=== PATIENT | male | born 1990 | race Hispanic/Latino ===

== ENCOUNTER 2017-05-09 10:49 | Emergency (ER) | payer SELFPAY ==
[2017-05-09] MEDS ORDERED: ACETAMINOPHEN 500 MG TAB ONE (11:30)
--- NOTE | 2017-05-09 13:13 | EDPHYS ---
Physician Documentation [facility] Name: Edgardo Gomez Age: 26 yrs Sex: Male : 1990 Arrival Date: 05/09/2017 Time: 10:53 Bed 12 Private MD: ED Physician Cameron Daigle HPI: 05/09 13:11 This 26 yrs old Male presents to ER via Ambulatory with complaints of Flu snw Symptoms. 13:11 cold s/s and fever, chills, diarrhea. Onset: The symptoms/episode began/occurred snw gradually, 4 day(s) ago, and became persistent. Severity of symptoms: At their worst the symptoms were moderate. It is unknown whether or not the patient has had similar symptoms in the past. The patient has not recently seen a physician. Historical: - Allergies: 11:08 No Known Allergies; ch - Home Meds: :08 None [Active]; ch - PMHx: 11:08 None; ch - PSHx: 11:08 None; ch - Immunization history:: Adult Immunizations up to date, Last tetanus immunization: not indicated for visit today. Flu vaccine is not up to date. - Social history:: Smoking status: Patient uses tobacco products, denies chronic smoking, but will smoke occasionally, Patient/guardian denies using alcohol, street drugs. ROS: 13:10 Eyes: Negative for injury, pain, redness, and discharge, ENT: Negative for injury, snw pain, and discharge, Neck: Negative for injury, pain, and swelling, Cardiovascular: Negative for chest pain, palpitations, and edema, Respiratory: Negative for shortness of breath, cough, wheezing, and pleuritic chest pain. 13:10 Back: Negative for injury and pain, : Negative for injury, bleeding, discharge, and swelling, MS/Extremity: Negative for injury and deformity, Skin: Negative for injury, rash, and discoloration, Neuro: Negative for headache, weakness, numbness, tingling, and seizure. 13:10 Constitutional: Positive for body aches, chills, fatigue, fever, malaise, poor PO intake. 13:10 Abdomen/GI: Positive for diarrhea, Negative for abdominal pain. Exam: 13:10 Constitutional: This is a well developed, well nourished patient who is awake, alert, snw and in no acute distress. Head/Face: Normocephalic, atraumatic. Eyes: Pupils equal round and reactive to light, extra-ocular motions intact. Lids and lashes normal. Conjunctiva and sclera are non-icteric and not injected. Cornea within normal limits. Periorbital areas with no swelling, redness, or edema. ENT: Nares patent. No nasal discharge, no septal abnormalities noted. Tympanic membranes are normal and external auditory canals are clear. Oropharynx with no redness, swelling, or masses, exudates, or evidence of obstruction, uvula midline. Mucous membranes moist. Neck: Trachea midline, no thyromegaly or masses palpated, and no cervical lymphadenopathy. Supple, full range of motion without nuchal rigidity, or vertebral point tenderness. No Meningismus. Chest/axilla: Normal chest wall appearance and motion. Nontender with no deformity. No lesions are appreciated. Cardiovascular: Regular rate and rhythm with a normal S1 and S2. No gallops, murmurs, or rubs. Normal PMI, no JVD. No pulse deficits. Respiratory: Lungs have equal breath sounds bilaterally, clear to auscultation and percussion. No rales, rhonchi or wheezes noted. No increased work of breathing, no retractions or nasal flaring. Abdomen/GI: Soft, non-tender, with normal bowel sounds. No distension or tympany. No guarding or rebound. No evidence of tenderness throughout. Back: No spinal tenderness. No costovertebral tenderness. Full range of motion. Skin: Warm, dry with normal turgor. Normal color with no rashes, no lesions, and no evidence of cellulitis. MS/ Extremity: Pulses equal, no cyanosis. Neurovascular intact. Full, normal range of motion. Neuro: Awake and alert, GCS 15, oriented to person, place, time, and situation. Cranial nerves II-XII grossly intact. Motor strength 5/5 in all extremities. Sensory grossly intact. Cerebellar exam normal. Normal gait. Vital Signs: 11:08 BP 118 / 85; Pulse 85; Resp 16; Temp 100.6(O); Pulse Ox 97% on R/A; Weight 108.86 kg; ch Height 5 ft. 7 in. (170.18 cm); Pain 0/10; 13:05 BP 119 / 81; Pulse 80; Resp 16; Temp 98.4(O); Pulse Ox 100% on R/A; Pain 0/10; kt1 11:08 Body Mass Index 37.59 (108.86 kg, 170.18 cm) MDM: 12:45 Patient medically screened. snw 13:14 Data reviewed: vital signs, nurses notes. Data interpreted: Pulse oximetry: on room air snw is 100 %. Interpretation: normal. Counseling: I had a detailed discussion with the patient and/or guardian regarding: the historical points, exam findings, and any diagnostic results supporting the discharge/admit diagnosis, the presence of at least one elevated blood pressure reading (>120/80) during this emergency department visit, lab results, the need for outpatient follow up, to return to the emergency department if symptoms worsen or persist or if there are any questions or concerns that arise at home. Special discussion: Based on the history and exam findings, there is no indication for further emergent testing or inpatient evaluation. I discussed with the patient/guardian the need to see the primary care provider for further evaluation of the symptoms. 05/09 11:09 Order name: Flu; Complete Time: 11:48 05/09 11:09 Order name: Strep; Complete Time: 11:48 05/09 11:36 Order name: Throat Culture EDMS Administered Medications: 11:30 Drug: Tylenol 1000 mg {Note: given by Pam Crawley RN.} Route: PO; kt1 13:20 Drug: TORadol 60 mg Route: IM; Site: right deltoid; kt1 Disposition: 14:10 Co-signature as Attending Physician, Cameron Daigle MD I agree with the assessment and kdr plan of care. Disposition: 05/09/17 13:13 Discharged to Home. Impression: Viral infection, unspecified. - Condition is Stable. - Discharge Instructions: Viral Infections, Rehydration, Adult. - Prescriptions for Diclofenac Sodium 75 mg Oral Tablet Sustained Release - take 1 tablet by ORAL route 2 times per day; 30 tablet. orphenadrine citrate 100 mg Oral Tablet Sustained Release - take 1 tablet by ORAL route 2 times per day As needed; 20 tablet. - Work release form, Medication Reconciliation Form, Thank You Letter, Antibiotic Education form. - Follow up: Private Physician; When: 2 - 3 days; Reason: Recheck today's complaints, Continuance of care, Re-evaluation by your physician. Follow up: Emergency Department; When: As needed; Reason: Worsening of condition. Signatures: Dispatcher [employer] Pam Mendez, RN RN Cameron Hernandez MD MD kdr Therrien, Shelly, HYDROELECTRIC PLANT STRUCTURAL ENGINEER-C HYDROELECTRIC PLANT STRUCTURAL ENGINEER-Csnw Amie Ortega, RN RN kt1
--- NOTE | 2017-05-09 13:13 | ER ---
Nurse's Notes [facility] Name: Edgardo Gomez Age: 26 yrs Sex: Male : 1990 Arrival Date: 05/09/2017 Time: 10:53 Bed 12 Private MD: Diagnosis: Viral infection, unspecified Presentation: 05/09 11:07 Presenting complaint: Patient states: cough, congestion, bodyache, chills, fever t max ch 102, diarrhea. started Monday night. Transition of care: patient was not received from another setting of care. Onset of symptoms was May 05, 2017. Care prior to arrival: None. 11:07 Method Of Arrival: Ambulatory 11:07 Acuity: ESTELITA 4 ch Triage Assessment: 11:08 General: Appears in no apparent distress. uncomfortable, Behavior is calm, cooperative, ch appropriate for age. Pain: Denies pain. Historical: - Allergies: 11:08 No Known Allergies; - Home Meds: 11:08 None [Active]; ch - PMHx: 11:08 None; ch - PSHx: 11:08 None; - Immunization history:: Adult Immunizations up to date, Last tetanus immunization: not indicated for visit today. Flu vaccine is not up to date. - Social history:: Smoking status: Patient uses tobacco products, denies chronic smoking, but will smoke occasionally, Patient/guardian denies using alcohol, street drugs. Vital Signs: 11:08 BP 118 / 85; Pulse 85; Resp 16; Temp 100.6(O); Pulse Ox 97% on R/A; Weight 108.86 kg; Height 5 ft. 7 in. (170.18 cm); Pain 0/10; 13:05 BP 119 / 81; Pulse 80; Resp 16; Temp 98.4(O); Pulse Ox 100% on R/A; Pain 0/10; kt1 11:08 Body Mass Index 37.59 (108.86 kg, 170.18 cm) ED Course: 10:53 Patient arrived in ED. rg4 11:08 Triage completed. 11:08 Arm band placed on left wrist. Patient placed in waiting room. 11:48 Kelli Barrientos FNP-C [facility]. snw 11:48 Cameron Daigle MD is Attending Physician. snw Administered Medications: 11:30 Drug: Tylenol 1000 mg {Note: given by Pam Crawley RN.} Route: PO; kt1 13:20 Drug: TORadol 60 mg Route: IM; Site: right deltoid; kt1 Outcome: 13:13 Discharge ordered by MD. [place] 13:54 Patient left the ED. kt1 Signatures: Pam Kam, RN RN Kelli Barrientos, CUSTOM WOOD STAIR BUILDER-C CUSTOM WOOD STAIR BUILDER-[place]ew Amie Ortega RN RN [facility] Margo Moraes rg4
[2017-05-09] MEDS ORDERED: KETOROLAC 30 MG/ML INJ ONE (13:34)
== END 2017-05-09 13:54 | disposition home or self-care (01) ==
LOC: ER 10:49
DX: B34.9 Viral infection, unspecified (principal)
CPT/HCPCS: 87070; 87081; 87804; 96372; 99283

== ENCOUNTER 2017-12-07 11:05 | Emergency (ER) | payer SELFPAY ==
[2017-12-07] MEDS ORDERED: CEFTRIAXONE/SWI 1gm 1 GM/10 ML SYR ONE (11:38)
[2017-12-07 12:41] LABS: Absolute Monocytes 1.4 K/uL (0.1-1.3); Absolute Neutrophil 8.7 K/uL (1.8-8.0); Basophils % 0.3 % (0-1.3); Eosinophils % 0.6 % (0-4.4); Hematocrit 43.3 % (39.6-49.0); Lymphocytes % 16.4 % (15.3-44.8); MCH 27.8 pg (27.0-35.0); MCV 83.1 fL (80-100); MPV 8.2 fL (7.6-11.3); Monocytes % 11.4 % (3.3-12.3); RBC Red Blood Cell Count 5.21 M/uL (4.33-5.43)
[2017-12-07 12:52] LABS: BUN Blood Urea Nitrogen 14 mg/dL (7-18); Bicarbonate 26 mmol/L (21-32); Glucose Level 96 mg/dL (74-106); Potassium 3.7 mmol/L (3.5-5.1); Sodium Level 137 mmol/L (136-145); Uric Acid 5.8 mg/dL (3.5-7.2)
--- NOTE | 2017-12-07 13:30 | RAD REPORT ---
EXAM DESCRIPTION: RAD - Knee Right 3 View - 12/07/2017 12:35 pm CLINICAL HISTORY: Knee pain COMPARISON: None. FINDINGS: No fracture, dislocation or periosteal reaction.No joint effusion seen. No joint space bry rowing. Soft tissues anterior to the knee joint appear thickened and edematous. No foreign body or ot her soft tissue abnormality. IMPRESSION: No acute bone or joint finding. Prominent edema or contusion changes anterior to the knee joint. Clinical concerns for internal derangement or occult bony injury could be further assessed with MR im aging.
--- NOTE | 2017-12-07 13:31 | EDPHYS ---
Physician Documentation [facility] Name: Edgardo Gomez Age: 26 yrs Sex: Male : 1990 Arrival Date: 12/07/2017 Time: 11:07 Bed 16 Private MD: ED Physician Cameron Daigle HPI: 12/07 12:00 This 26 yrs old Male presents to ER via Ambulatory with complaints of Knee jmm Pain. 12:00 The patient presents with pain, that is acute. The complaints affect the right knee. jmm Onset: The symptoms/episode began/occurred gradually, 1 day(s) ago. Modifying factors: The symptoms are alleviated by remaining still, the symptoms are aggravated by movement. Associated signs and symptoms: Pertinent negatives fever. This is a 26 year old male with no chronic medical conditions that presents to the ED with right knee pain beginning 1 day ago. 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 Denies fever. . Historical: - Allergies: 11:14 No Known Allergies; sv - Home Meds: 11:14 None [Active]; sv - PMHx: 11:14 None; sv - PSHx: 11:14 None; sv - Immunization history:: Flu vaccine is not up to date. - Social history:: Smoking status: Patient uses tobacco products, smokes one-half pack cigarettes per day. - Ebola Screening: : No symptoms or risks identified at this time. ROS: 12:00 Constitutional: Negative for fever, chills, and weight loss, Cardiovascular: Negative jmm for chest pain, palpitations, and edema, Respiratory: Negative for shortness of breath, cough, wheezing, and pleuritic chest pain. 12:00 MS/extremity: Positive for erythema, pain, swelling. 12:00 All other systems are negative. Exam: 12:00 Head/Face: atraumatic. Chest/axilla: Normal chest wall appearance and motion. jmm Cardiovascular: Regular rate and rhythm. No edema appreciated Respiratory: Normal respirations, no respiratory distress appreciated 12:00 Skin: General appearance color normal MS/ Extremity: Moves all extremities, no obvious deformities appreciated, no edema noted to the lower extremities 12:00 Constitutional: The patient appears in no acute distress, alert, awake. Vital Signs: 11:14 BP 138 / 80; Pulse 101; Resp 18; Temp 98.1; Pulse Ox 100% ; Weight 104.33 kg; Height 5 sv ft. 7 in. (170.18 cm); Pain 9/10; 13:55 BP 121 / 73; Pulse 81; Resp 16; Pulse Ox 98% on R/A; aj1 11:14 Body Mass Index 36.02 (104.33 kg, 170.18 cm) sv MDM: 11:57 Patient medically screened. [facility] 12:04 Data reviewed: vital signs, nurses notes. Counseling: I had a detailed discussion with [facility] the patient and/or guardian regarding:. 13:31 Data reviewed: radiologic studies, plain films. [facility] 13:31 Counseling: I had a detailed discussion with the patient and/or guardian regarding: the [facility] historical points, exam findings, and any diagnostic results supporting the discharge/admit diagnosis, the presence of at least one elevated blood pressure reading (>120/80) during this emergency department visit, lab results, radiology results, the need for outpatient follow up, to return to the emergency department if symptoms worsen or persist or if there are any questions or concerns that arise at home. ED course: Symptoms appear most likely due to cellulitis. Erythema is well localized. Patient is able to ROM knee without difficulty. Patient is afebrile. I do not currently suspect septic joint. Patient prescribed abx and advised to follow up with ortho. patient is otherwise given strict return precautions. Patient understood and agrees with the plan of care. . 12/07 11:58 Order name: CBC with Diff; Complete Time: 12:55 [facility] 12/07 11:58 Order name: BMP; Complete Time: 12:55 [facility] 12/07 11:58 Order name: Knee Right 3 View XRAY; Complete Time: 13:31 [facility] 12/07 11:58 Order name: Saline Lock; Complete Time: 12:28 [facility] 12/07 11:58 Order name: Uric Acid; Complete Time: 12:55 [facility] Administered Medications: 12:56 Drug: Ketorolac 30 mg Route: IVP; Site: left antecubital; [facility] 13:58 Follow up: Response: No adverse reaction aj1 Disposition: 12/07/17 13:30 Discharged to Home. Impression: Cellulitis of right lower limb, Pain in right knee. - Condition is Stable. - Discharge Instructions: Cellulitis, Adult, Knee Pain. - Prescriptions for Ibuprofen 800 mg Oral Tablet - take 1 tablet by ORAL route every 12 hours As needed take with food; 20 tablet. Bactrim DS 800- 160 mg Oral Tablet - take 1 tablet by ORAL route every 12 hours for 10 days; 20 tablet. - Work release form, Medication Reconciliation Form, Thank You Letter, Antibiotic Education, Prescription Opioid Use form. - Follow up: Bobby Perry MD; When: Tomorrow; Reason: Recheck today's complaints, Continuance of care, Re-evaluation by your physician. - Notes: Please follow up with orthopedics tomorrow for reevaluation. Please return to the ED if you develop a fever or increased swelling. Addendum: 12/09/2017 13:26 Co-signature as Attending Physician, Cameron Daigle MD I agree with the assessment and k dr plan of care. Signatures: Dispatcher [employer] EDMS Ramonita Pearson RN RN aj1 Preeti Wynn RN RN sv Cameron Daigle MD MD [facility] Boby Weinberg PA PA jmm Corrections: (The following items were deleted from the chart) 12/07 13:58 13:30 12/07/2017 13:30 Discharged to Home. Impression: Cellulitis of right lower limb; aj1 Pain in right knee. Condition is Stable. Forms are Medication Reconciliation Form, Thank You Letter, Antibiotic Education, Prescription Opioid Use. Follow up: Bobby Perry; When: Tomorrow; Reason: Recheck today's complaints, Continuance of care, Re-evaluation by your physician. alaina
--- NOTE | 2017-12-07 13:31 | ER ---
Nurse's Notes [facility] Name: Edgardo Gomez Age: 26 yrs Sex: Male : 1990 Arrival Date: 12/07/2017 Time: 11:07 Bed 16 Private MD: Diagnosis: Cellulitis of right lower limb;Pain in right knee Presentation: 12/07 11:13 Presenting complaint: Patient states: right knee pain and swelling x 1 day. Motrin sv taken last night. Transition of care: patient was not received from another setting of care. Onset of symptoms was December 06, 2017. Care prior to arrival: None. 11:13 Method Of Arrival: Ambulatory sv 11:13 Acuity: ESTELITA 3 sv 13:44 Risk Assessment: Do you want to hurt yourself or someone else? Patient reports no aj1 desire to harm self or others. Initial Sepsis Screen: Does the patient meet any 2 criteria? No. Patient's initial sepsis screen is negative. Does the patient have a suspected source of infection? Yes: Skin breakdown/wound. Historical: - Allergies: 11:14 No Known Allergies; sv - Home Meds: 11:14 None [Active]; sv - PMHx: 11:14 None; sv - PSHx: 11:14 None; sv - Immunization history:: Flu vaccine is not up to date. - Social history:: Smoking status: Patient uses tobacco products, smokes one-half pack cigarettes per day. - Ebola Screening: : No symptoms or risks identified at this time. Screenin:40 Abuse screen: Denies threats or abuse. Denies injuries from another. Nutritional aj1 screening: No deficits noted. Tuberculosis screening: No symptoms or risk factors identified. 13:44 Fall Risk None identified. aj1 Assessment: 11:40 General: Appears in no apparent distress. comfortable, Behavior is calm, cooperative, aj1 appropriate for age. Pain: Complains of pain in right knee Pain does not radiate. Pain currently is 9 out of 10 on a pain scale. Quality of pain is described as pressure, Pain began 1 day ago. Is continuous, Aggravated by weight bearing. Neuro: Level of Consciousness is awake, alert, obeys commands. Cardiovascular: Patient's skin is warm and dry. Respiratory: Airway is patent Respiratory effort is even, unlabored, Respiratory pattern is regular, symmetrical. GI: No signs and/or symptoms were reported involving the gastrointestinal system. : No signs and/or symptoms were reported regarding the genitourinary system. EENT: No signs and/or symptoms were reported regarding the EENT system. Derm: Skin is pink, warm \T\ dry. normal, Redness noted to right knee. Musculoskeletal: Range of motion: limited in right knee Swelling present in right knee. Vital Signs: 11:14 BP 138 / 80; Pulse 101; Resp 18; Temp 98.1; Pulse Ox 100% ; Weight 104.33 kg; Height 5 sv ft. 7 in. (170.18 cm); Pain 9/10; 13:55 BP 121 / 73; Pulse 81; Resp 16; Pulse Ox 98% on R/A; aj1 11:14 Body Mass Index 36.02 (104.33 kg, 170.18 cm) sv ED Course: 11:07 Patient arrived in ED. as 11:14 Triage completed. sv 11:14 Arm band placed on. sv 11:37 Ramonita Pearson, RN is Primary Nurse. aj1 11:40 Patient has correct armband on for positive identification. Bed in low position. Call aj1 light in reach. Side rails up X 1. 11:40 No provider procedures requiring assistance completed. aj1 11:42 Boby Weinberg PA is PHCP. [facility] 11:42 Cameron Daigle MD is Attending Physician. jmm 12:28 Initial lab(s) drawn, by co, sent to lab. Inserted saline lock: 20 gauge in left em1 antecubital area, using aseptic technique. Blood collected. 12:34 X-ray completed. Portable x-ray completed in exam room. Patient tolerated procedure tm4 well. 12:35 Knee Right 3 View XRAY In Process Unspecified. EDMS 13:29 Bobby Perry MD is Referral Physician. jmm 13:57 IV discontinued, intact, bleeding controlled, No redness/swelling at site. Pressure aj1 dressing applied. Administered Medications: 12:56 Drug: Ketorolac 30 mg Route: IVP; Site: left antecubital; aj1 13:58 Follow up: Response: No adverse reaction aj1 Outcome: 13:30 Discharge ordered by . jmm 13:57 Discharged to home ambulatory. aj1 13:57 Condition: good 13:57 Discharge instructions given to patient, Instructed on discharge instructions, follow up and referral plans. medication usage, Demonstrated understanding of instructions, follow-up care, medications, Prescriptions given X 2. 13:58 Patient left the ED. aj1 Signatures: Dispatcher [employer] EDRamonita Taylor RN RN aj1 Preeti Wynn RN RN Boby Santos PA PA jmm Marroquin, Tracy 4 Kayli Ovalle, Rex 1
== END 2017-12-07 13:58 | disposition home or self-care (01) ==
LOC: ER 11:05
DX: L03.115 Cellulitis of right lower limb (principal); F17.210 Nicotine dependence, cigarettes, uncomplicated
CPT/HCPCS: 36415; 80048; 84550; 85025; 96374; 99284; J0696

== ENCOUNTER 2019-04-30 11:50 | Emergency (ER) | payer SELFPAY ==
--- NOTE | 2019-04-30 13:10 | ER ---
Nurse's Notes [facility] Name: Edgardo Gomez Age: 28 yrs Sex: Male : 1990 Arrival Date: 04/30/2019 Time: 11:53 Bed 16 Private MD: Diagnosis: Acute pharyngitis, unspecified Presentation: 04/29 12:15 Chief complaint: Patient states: Sore throat since last night. Reports congestion and ca1 cough. Denies fever. Coronavirus screen: The patient has NOT traveled to [place] in the past 14 days. The patient has NOT had contact with known and/or suspected case of Coronavirus. Ebola Screen: Patient negative for fever greater than or equal to 101.5 degrees Fahrenheit, and additional compatible Ebola Virus Disease symptoms Patient denies exposure to infectious person. Patient denies travel to an Ebola-affected area in the 21 days before illness onset. No symptoms or risks identified at this time. Initial Sepsis Screen: Does the patient meet any 2 criteria? No. Patient's initial sepsis screen is negative. Does the patient have a suspected source of infection? No. Patient's initial sepsis screen is negative. Risk Assessment: Do you want to hurt yourself or someone else? Patient reports no desire to harm self or others. Onset of symptoms was April 29, 2019. 12:15 Method Of Arrival: Ambulatory ca1 12:15 Acuity: ESTELITA 4 ca1 Triage Assessment: 13:27 General: Behavior is calm, cooperative. vg1 Historical: - Allergies: 12:17 No Known Allergies; ca1 - Home Meds: 12:17 None [Active]; ca1 - PMHx: 12:17 None; ca1 - PSHx: 12:17 None; ca1 - Immunization history:: Adult Immunizations up to date, Flu vaccine is not up to date. Patient has never been vaccinated. - Social history:: Smoking status: Patient reports the use of cigarette tobacco products, denies chronic smoking, but will smoke occasionally. Screenin:24 Tuberculosis screening: No symptoms or risk factors identified. Fall Risk None vg1 identified. 13:30 Abuse screen: Denies threats or abuse. Nutritional screening: No deficits noted. vg1 Assessment: 13:15 General: Appears in no apparent distress. Pain: Denies pain. Neuro: No deficits noted. vg1 Level of Consciousness is awake, alert, obeys commands, Oriented to person, place, time, situation. Cardiovascular: No deficits noted. Respiratory: Airway is patent Respiratory effort is even, unlabored. GI:. EENT: Throat is reddened. 13:20 General: I agree with the above assessment. ph Vital Signs: 12:15 BP 123 / 72; Pulse 97; Resp 16 S; Temp 98(O); Pulse Ox 97% on R/A; Weight 108.86 kg ca1 (R); Height 5 ft. 6 in. (167.64 cm) (R); 13:28 BP 125 / 80; Pulse 90; Resp 16; Temp 98.0(O); Pulse Ox 98% on R/A; vg1 12:15 Body Mass Index 38.74 (108.86 kg, 167.64 cm) ca1 ED Course: 11:53 Patient arrived in ED. ag5 12:00 Kelli Barrientos FNP-C is [facility]. snw 12:00 Zuleyma Batres MD is Attending Physician. snw 12:17 Triage completed. ca1 12:17 Arm band placed on right wrist. ca1 12:24 Mariela Schilling, RN is Primary Nurse. ph 13:24 Patient has correct armband on for positive identification. Bed in low position. vg1 13:26 No provider procedures requiring assistance completed. Patient did not have IV access vg1 during this emergency room visit. Administered Medications: 13:10 Drug: Decadron 8 mg Route: PO; ph 13:11 Follow up: Response: No adverse reaction ph Outcome: 13:09 Discharge ordered by . snw 13:25 Discharged to home ambulatory. vg1 13:25 Condition: good 13:25 Discharge instructions given to patient, Instructed on discharge instructions, follow up and referral plans. medication usage, Demonstrated understanding of instructions, follow-up care, medications, Prescriptions given X 1. 13:31 Patient left the ED. vg1 Signatures: Kelli Barrientos FNP-C FNP-Mariela Cochran RN RN [facility] [place] ag5 Hannah Moraes vg1
--- NOTE | 2019-04-30 13:10 | EDPHYS ---
Physician Documentation [facility] Name: Edgardo Gomez Age: 28 yrs Sex: Male : 1990 Arrival Date: 04/30/2019 Time: 11:53 Bed 16 Private MD: ED Physician Zuleyma Batres HPI: 04/29 13:12 This 28 yrs old Male presents to ER via Ambulatory with complaints of Sore snw Throat. 13:12 The patient presents with sore throat. The patient describes throat pain as raw, snw scratchy. Onset: The symptoms/episode began/occurred suddenly, last night. Severity of symptoms: At their worst the symptoms were moderate. Associated signs and symptoms: The patient has no apparent associated signs or symptoms. It is unknown whether or not the patient has had similar symptoms in the past. It is unknown whether or not the patient has recently seen a physician. Historical: - Allergies: 12:17 No Known Allergies; ca1 - Home Meds: 12:17 None [Active]; ca1 - PMHx: 12:17 None; ca1 - PSHx: 12:17 None; ca1 - Immunization history:: Adult Immunizations up to date, Flu vaccine is not up to date. Patient has never been vaccinated. - Social history:: Smoking status: Patient reports the use of cigarette tobacco products, denies chronic smoking, but will smoke occasionally. ROS: 12:59 Constitutional: Negative for fever, chills, and weight loss, Eyes: Negative for injury, snw pain, redness, and discharge, ENT: Negative for injury and discharge, + sore throat Neck: Negative for injury, pain, and swelling, Cardiovascular: Negative for chest pain, palpitations, and edema, Respiratory: Negative for shortness of breath, cough, wheezing, and pleuritic chest pain, Abdomen/GI: Negative for abdominal pain, nausea, vomiting, diarrhea, and constipation, Back: Negative for injury and pain, : Negative for injury, bleeding, discharge, and swelling, MS/Extremity: Negative for injury and deformity, Skin: Negative for injury, rash, and discoloration, Neuro: Negative for headache, weakness, numbness, tingling, and seizure, Psych: Negative for depression, anxiety, suicide ideation, homicidal ideation, and hallucinations. Exam: 12:56 Constitutional: This is a well developed, well nourished patient who is awake, alert, snw and in no acute distress. Head/Face: Normocephalic, atraumatic. Eyes: Pupils equal round and reactive to light, extra-ocular motions intact. Lids and lashes normal. Conjunctiva and sclera are non-icteric and not injected. Cornea within normal limits. Periorbital areas with no swelling, redness, or edema. ENT: Nares patent. No nasal discharge, no septal abnormalities noted. Tympanic membranes are normal and external auditory canals are clear. Oropharynx with no redness, swelling, or masses, exudates, or evidence of obstruction, uvula midline. Mucous membranes moist. Neck: Trachea midline, no thyromegaly or masses palpated, and no cervical lymphadenopathy. Supple, full range of motion without nuchal rigidity, or vertebral point tenderness. No Meningismus. Chest/axilla: Normal chest wall appearance and motion. Nontender with no deformity. No lesions are appreciated. Cardiovascular: Regular rate and rhythm with a normal S1 and S2. No gallops, murmurs, or rubs. Normal PMI, no JVD. No pulse deficits. Respiratory: Lungs have equal breath sounds bilaterally, clear to auscultation and percussion. No rales, rhonchi or wheezes noted. No increased work of breathing, no retractions or nasal flaring. Abdomen/GI: Soft, non-tender, with normal bowel sounds. No distension or tympany. No guarding or rebound. No evidence of tenderness throughout. Back: No spinal tenderness. No costovertebral tenderness. Full range of motion. Skin: Warm, dry with normal turgor. Normal color with no rashes, no lesions, and no evidence of cellulitis. MS/ Extremity: Pulses equal, no cyanosis. Neurovascular intact. Full, normal range of motion. Neuro: Awake and alert, GCS 15, oriented to person, place, time, and situation. Cranial nerves II-XII grossly intact. Motor strength 5/5 in all extremities. Sensory grossly intact. Cerebellar exam normal. Normal gait. Psych: Awake, alert, with orientation to person, place and time. Behavior, mood, and affect are within normal limits. Vital Signs: 12:15 BP 123 / 72; Pulse 97; Resp 16 S; Temp 98(O); Pulse Ox 97% on R/A; Weight 108.86 kg ca1 (R); Height 5 ft. 6 in. (167.64 cm) (R); 13:28 BP 125 / 80; Pulse 90; Resp 16; Temp 98.0(O); Pulse Ox 98% on R/A; vg1 12:15 Body Mass Index 38.74 (108.86 kg, 167.64 cm) ca1 MDM: 12:21 Patient medically screened. snw 13:11 Data reviewed: vital signs, nurses notes. Data interpreted: Pulse oximetry: on room air snw is 97 %. Interpretation: normal. Counseling: I had a detailed discussion with the patient and/or guardian regarding: the historical points, exam findings, and any diagnostic results supporting the discharge/admit diagnosis, the need for outpatient follow up, to return to the emergency department if symptoms worsen or persist or if there are any questions or concerns that arise at home. Special discussion: Based on the history and exam findings, there is no indication for further emergent testing or inpatient evaluation. I discussed with the patient/guardian the need to see the primary care provider for further evaluation of the symptoms. Administered Medications: 13:10 Drug: Decadron 8 mg Route: PO; ph 13:11 Follow up: Response: No adverse reaction ph Disposition: 04/30/19 13:09 Discharged to Home. Impression: Acute pharyngitis, unspecified. - Condition is Stable. - Discharge Instructions: Pharyngitis, Rehydration, Adult. - Prescriptions for Zyrtec 10 mg Oral Tablet - take 1 tablet by ORAL route once daily As needed; 20 tablet. - Work release form, Medication Reconciliation Form, Thank You Letter, Antibiotic Education, Prescription Opioid Use form. - Follow up: Emergency Department; When: As needed; Reason: Worsening of condition. Follow up: Private Physician; When: 2 - 3 days; Reason: Recheck today's complaints, Continuance of care, Re-evaluation by your physician. Addendum: 05/06/2019 01:28 Co-signature as Attending Physician, Zuleyma Batres MD. m a2 Signatures: Kelli Barrientos, JENIFFER-C CARD MAKER-Deew Mariela Schilling RN RN Zuleyma Batres MD MD [facility] Tonya Tobar RN RN [facility] Hannah Moraes vg1 Corrections: (The following items were deleted from the chart) 04/29 13:31 13:09 04/30/2019 13:09 Discharged to Home. Impression: Acute pharyngitis, unspecified. vg1 Condition is Stable. Forms are Medication Reconciliation Form, Thank You Letter, Antibiotic Education, Prescription Opioid Use. Follow up: Emergency Department; When: As needed; Reason: Worsening of condition. Follow up: Private Physician; When: 2 - 3 days; Reason: Recheck today's complaints, Continuance of care, Re-evaluation by your physician. snw
[2019-04-30] MEDS ORDERED: dexAMETHasone 4 MG TAB ONE (13:14)
[2019-04-30 14:29] VITALS: BP 125/80; TEMP 98; O2SAT 98
== END 2019-04-30 13:31 | disposition home or self-care (01) ==
LOC: ER 11:50
DX: J02.9 Acute pharyngitis, unspecified (principal); F17.210 Nicotine dependence, cigarettes, uncomplicated
CPT/HCPCS: 99283; J8540

== ENCOUNTER 2019-06-16 17:05 | Emergency (ER) | payer SELFPAY ==
--- NOTE | 2019-06-16 18:01 | ER ---
Nurse's Notes [facility] Name: Edgardo Gomez Age: 28 yrs Sex: Male : 1990 Arrival Date: 06/16/2019 Time: 17:05 Bed 20 Private MD: Diagnosis: Sprain of unspecified ligament of left ankle Presentation: 06/15 17:11 Chief complaint: Patient states: rolled his left ankle yesterday morning, now has pain iw and swelling. Coronavirus screen: Proceed with normal triage. Patient denies a cough. Patient denies shortness of breath or difficulty breathing. Patient denies measured and/or subjective temperature greater than 100.4F prior to today's visit. Patient denies travel on a cruise ship or to a country the [facility] currently lists as an affected area. Patient denies contact with known and/or suspected case of COVID-19. Ebola Screen: Patient negative for fever greater than or equal to 101.5 degrees Fahrenheit, and additional compatible Ebola Virus Disease symptoms Patient denies exposure to infectious person. Patient denies travel to an Ebola-affected area in the 21 days before illness onset. No symptoms or risks identified at this time. Initial Sepsis Screen: Does the patient meet any 2 criteria? No. Patient's initial sepsis screen is negative. Does the patient have a suspected source of infection? No. Patient's initial sepsis screen is negative. Risk Assessment: Do you want to hurt yourself or someone else? Patient reports no desire to harm self or others. 17:11 Method Of Arrival: Ambulatory iw 17:11 Acuity: ESTELITA 4 iw 17:12 Onset of symptoms was June 15, 2019. iw Historical: - Allergies: 17:13 No Known Allergies; iw - Home Meds: 17:13 None [Active]; iw - PMHx: 17:13 None; iw - PSHx: 17:13 None; iw - Immunization history:: Adult Immunizations up to date. - Social history:: Smoking status: . - Family history:: not pertinent. - Hospitalizations: : No recent hospitalization is reported. Screenin:15 Abuse screen: Denies threats or abuse. Nutritional screening: No deficits noted. rb1 Tuberculosis screening: No symptoms or risk factors identified. Fall Risk No fall in past 12 months (0 pts). Secondary diagnosis (15 points) impaired mobility, No IV (0 pts). Ambulatory Aid- None/Bed Rest/Nurse Assist (0 pts). Gait- Impaired (20 pts.). Mental Status- Oriented to own ability (0 pts). Total Mistry Fall Scale indicates Low Risk Score (25-44 pts). Fall prevention measures have been instituted. Side Rails Up X 2 Placed close to Nursing Station 1:1 attendant Assigned to Pt. Frequent Obs/Assesments occuring As available Patient and Family Educated on Fall Prevention Program and strategies. Assessment: 17:11 General: Appears. iw 17:15 General: Appears in no apparent distress. comfortable, Behavior is calm, cooperative, rb1 His leg was asleep and when he stood up to walk on it, his left ankle rolled. Denies hearing a pop. Reports a previous injury on the left ankle that occurred while playing basketball.. Pain: Complains of pain in left ankle Pain currently is 3 out of 10 on a pain scale. Pain began 1 day ago. Aggravated by weight bearing. Neuro: Level of Consciousness is awake, alert, obeys commands, Oriented to person, place, time, situation. Cardiovascular: Capillary refill < 3 seconds. Respiratory: Airway is patent Respiratory effort is even, unlabored, Respiratory pattern is regular, symmetrical. GI: No signs and/or symptoms were reported involving the gastrointestinal system. : No signs and/or symptoms were reported regarding the genitourinary system. Derm: Bruising that is dark purple, on lateral left ankle. Musculoskeletal: Swelling present in left ankle. 18:10 Reassessment: Patient appears in no apparent distress at this time. No changes from rb1 previously documented assessment. Vital Signs: 17:11 BP 138 / 92; Pulse 99; Resp 16; Temp 98.0; Pulse Ox 98% on R/A; iw 18:17 BP 126 / 79; Pulse 101; Resp 14; Pulse Ox 100% on R/A; Pain 5/10; ls4 ED Course: 17:05 Patient arrived in ED. as 17:08 Anthony Fabian MD is Attending Physician. rn 17:12 Triage completed. iw 17:12 Arm band placed on. iw 17:15 Patient has correct armband on for positive identification. Bed in low position. Call rb1 light in reach. Side rails up X 1. Pulse ox on. NIBP on. 17:30 Rowena Mike, RN is Primary Nurse. rb1 18:12 XRAY Ankle LEFT 3 view In Process Unspecified. EDMS 18:18 No provider procedures requiring assistance completed. Patient did not have IV access ls4 during this emergency room visit. Administered Medications: No medications were administered Outcome: 18:00 Discharge ordered by . rn 18:23 Discharged to home ambulatory. rb1 18:23 Condition: stable 18:23 Discharge instructions given to patient, Instructed on discharge instructions, follow up and referral plans. Demonstrated understanding of instructions, follow-up care, Prescriptions given X none 18:24 Patient left the ED. rb1 Signatures: Dispatcher [employer] EDMS Kayli Ovalle Irene, RN RN iw Anthony Fabian MD MD rn Barber, Rebecca, RN RN rb1 Argenis Delatorre RN RN ls4 Corrections: (The following items were deleted from the chart) 17:13 17:11 Pulse 99bpm; Resp 16bpm; Pulse Ox 98% RA; Temp 98.0F; iw iw
--- NOTE | 2019-06-16 18:02 | EDPHYS ---
Physician Documentation [facility] Name: Edgardo Gomez Age: 28 yrs Sex: Male : 1990 Arrival Date: 06/16/2019 Time: 17:05 Bed 20 Private MD: ED Physician Anthony Fabian HPI: 06/15 17:12 This 28 yrs old Male presents to ER via Ambulatory with complaints of Ankle rn Injury. 17:12 The patient presents with an injury, pain, swelling. The complaints affect the left rn ankle. Onset: The symptoms/episode began/occurred 2 day(s) ago. Context: resulted from a mis-step by the patient, The mechanism of injury involved inversion of the affected ankle. The patient can fully bear weight on the affected extremity. the patient is able to ambulate. Modifying factors: The symptoms are alleviated by elevation of extremity, the symptoms are aggravated by weight bearing, movement. Severity of symptoms: At their worst the symptoms were moderate, in the emergency department the symptoms have improved. The patient has experienced a previous episode. Reports "rolled ankle" 2 days ago, worse yesterday now better, can walk on it, still swollen, and hurts but not as much. No other injury. Was inversion injury. . Historical: - Allergies: 17:13 No Known Allergies; iw - Home Meds: 17:13 None [Active]; iw - PMHx: 17:13 None; iw - PSHx: 17:13 None; iw - Immunization history:: Adult Immunizations up to date. - Social history:: Smoking status: . - Family history:: not pertinent. - Hospitalizations: : No recent hospitalization is reported. ROS: 17:12 MS/Extremity: + left ankle injury and pain/swelling rn Exam: 17:12 Constitutional: This is a well developed, well nourished patient who is awake, alert, rn and in no acute distress. Ambulatory to room without distress or assistance. No limp. Vital Signs: 17:11 BP 138 / 92; Pulse 99; Resp 16; Temp 98.0; Pulse Ox 98% on R/A; iw 18:17 BP 126 / 79; Pulse 101; Resp 14; Pulse Ox 100% on R/A; Pain 5/10; ls4 MDM: 17:08 Patient medically screened. rn 17:58 Differential diagnosis: fracture, sprain. Data reviewed: vital signs, nurses notes, rn radiologic studies, plain films, and as a result, I will discharge patient. Test interpretation: by ED physician or midlevel provider: plain radiologic studies, Xray left ankle neg for fracture/dislocation. . Counseling: I had a detailed discussion with the patient and/or guardian regarding: the historical points, exam findings, and any diagnostic results supporting the discharge/admit diagnosis, radiology results, the need for outpatient follow up, to return to the emergency department if symptoms worsen or persist or if there are any questions or concerns that arise at home. Special discussion: I discussed with the patient/guardian in detail that at this point there is no indication for admission to the hospital. It is understood, however, that if the symptoms persist or worsen the patient needs to return immediately for re-evaluation. 06/15 17:12 Order name: XRAY Ankle LEFT 3 view rn Administered Medications: No medications were administered Disposition: 06/16/19 18:00 Discharged to Home. Impression: Sprain of unspecified ligament of left ankle. - Condition is Stable. - Discharge Instructions: Ankle Sprain. - Medication Reconciliation Form, Thank You Letter, Antibiotic Education, Prescription Opioid Use, Work release form form. - Follow up: Private Physician; When: As needed; Reason: Recheck today's complaints, Re-evaluation by your physician. - Problem is new. - Symptoms have improved. Signatures: Dispatcher [employer] EDMaryjo Kaur RN RN iw Nieto, Roman, MD MD rn Barber, Rebecca, RN RN rb1 Corrections: (The following items were deleted from the chart) 18:24 18:00 06/16/2019 18:00 Discharged to Home. Impression: Sprain of unspecified ligament rb1 of left ankle. Condition is Stable. Forms are Medication Reconciliation Form, Thank You Letter, Antibiotic Education, Prescription Opioid Use. Follow up: Private Physician; When: As needed; Reason: Recheck today's complaints, Re-evaluation by your physician. Problem is new. Symptoms have improved. rn
[2019-06-16 18:29] VITALS: TEMP 98
[2019-06-16 18:31] VITALS: BP 126/79; O2SAT 100
--- NOTE | 2019-06-16 20:26 | RAD REPORT ---
EXAM DESCRIPTION: RAD - Ankle Left 3 View - 06/16/2019 6:12 pm CLINICAL HISTORY: Pain;Swelling, ankle injury COMPARISON: No comparisons FINDINGS: No gross fracture deformity seen. A 6 mm oval calcific density is seen along the medial ma rgin of the medial malleolus. This is not an acute finding. There is a smaller crescent-shaped bony d ensity along the medial malleolus that is potentially a small bone avulsion. Distal fibula is intact. Tibiotalar joint space intact. No joint effusion seen. No joint space narrowing. Soft tissue swellin g is present primarily along the lateral margin. IMPRESSION: No gross fracture deformity is seen. There may be a small crescent shaped bone avulsion along the medial margin of the medial malleolus. This needs correlation with localizing symptoms.
== END 2019-06-16 18:24 | disposition home or self-care (01) ==
LOC: ER 17:05
DX: S93.402A Sprain of unspecified ligament of left ankle, initial encounter (principal); X58.XXXA Exposure to other specified factors, initial encounter; Y93.9 Activity, unspecified; Y92.9 Unspecified place or not applicable
CPT/HCPCS: 99283

== ENCOUNTER 2019-09-08 12:52 | Emergency (ER) | payer SELFPAY ==
[2019-09-08 13:40] LABS: Absolute Lymphocytes (CBC) 1.9 K/uL (0.7-4.9); Basophils % 0.3 % (0-1.3); MPV 7.8 fL (7.6-11.3); RBC Red Blood Cell Count 5.24 M/uL (4.33-5.43)
[2019-09-08] MEDS ORDERED: FENTANYL CITR 100 MCG/2 ML ONE (13:42)
[2019-09-08] MEDS ORDERED: ONDANSETRON 4 MG/2 ML VIAL ONE (13:42)
[2019-09-08 13:59] LABS: BUN Blood Urea Nitrogen 8 mg/dL (7-18); Bicarbonate 21 mmol/L (21-32); Glucose Level 99 mg/dL (74-106); Sodium Level 141 mmol/L (136-145)
--- NOTE | 2019-09-08 14:18 | RAD REPORT ---
EXAM DESCRIPTION: RAD - Elbow Right 3 View - 09/08/2019 2:09 pm CLINICAL HISTORY: Elbow pain FINDINGS: No fracture or dislocation is seen.
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
[2019-09-08 16:05] VITALS: TEMP 98
[2019-09-08 16:06] VITALS: BP 110/73; O2SAT 100
== END 2019-09-08 15:44 | disposition home or self-care (01) ==
LOC: ER 12:52
DX: T23.202A Burn of second degree of left hand, unspecified site, initial encounter (principal); T23.201A Burn of second degree of right hand, unspecified site, initial encounter; T31.0 Burns involving less than 10% of body surface; W22.11XA Striking against or struck by driver side automobile airbag, initial encounter; V58.5XXA Driver of pick-up truck or van injured in noncollision transport accident in traffic accident, initial encounter
CPT/HCPCS: 36415; 70450; 71260; 72125; 74177; 80048; 82565; 85025; 86850; 86900; 86901; 96374; 96375; 99284; J2405; J3010; Q9967

== ENCOUNTER 2020-11-18 15:18 | Emergency (ER) | payer SELFPAY ==
[2020-11-18 16:46] LABS: Absolute Lymphocytes (CBC) 1.5 K/uL (0.7-4.9); Basophils % 0.5 % (0-1.3); Hematocrit 45.8 % (39.6-49.0); Lymphocytes % 12.5 % (15.3-44.8); MPV 8.2 fL (7.6-11.3); RBC Red Blood Cell Count 5.65 M/uL (4.33-5.43)
[2020-11-18] MEDS ORDERED: ONDANSETRON 4 MG/2 ML VIAL ONE (16:46)
[2020-11-18] MEDS ORDERED: NA CHLORIDE 0.9% 1,000 ML ONE (16:46)
[2020-11-18 17:09] LABS: ALT/SGPT 32 U/L (12-78); AST/SGOT 18 U/L (15-37); Albumin 3.9 g/dL (3.4-5.0); Alkaline Phosphatase 74 U/L (45-117); BUN Blood Urea Nitrogen 10 mg/dL (7-18); Bicarbonate 19 mmol/L (21-32); Bilirubin Direct 0.1 mg/dL (0-0.2); Bilirubin Total 0.4 mg/dL (0.2-1.0); Glucose Level 110 mg/dL (74-106); Lipase 71 U/L (73-393); Potassium 3.5 mmol/L (3.5-5.1); Protein, Total 8.6 g/dL (6.4-8.2); Sodium Level 134 mmol/L (136-145)
--- NOTE | 2020-11-18 17:50 | RAD REPORT ---
EXAM DESCRIPTION: CTAbdomen Pelvis W Contrast - 11/18/2020 5:43 pm CLINICAL HISTORY: . ABD PAIN COMPARISON: No comparisons TECHNIQUE: Biphasic CT imaging of the abdomen and pelvis was performed with 100 ml non-ionic IV cont rast. All CT scans are performed using dose optimization technique as appropriate and may include automated exposure control or mA/KV adjustment according to patient size. FINDINGS: Lower chest: No acute abnormality. Liver: Hepatic steatosis Biliary: No biliary ductal dilatation. Stomach: No significant focal abnormality. Duodenum: No significant focal abnormality. Pancreas: No significant abnormality. Spleen: No significant abnormality. Adrenal: No suspicious lesions. Kidney/ureter: No hydronephrosis. No renal calculi. Too small to characterize and/or benign appearing renal lesions are noted. Retroperitoneum: No retroperitoneal adenopathy. Vascular: No aneurysm. Bowel: Mild circumferential thickening of the colon along nearly its entire course.. Normal appendix. Peritoneum: No ascites or free air. Bladder: Grossly unremarkable. Reproductive: No adnexal masses. Bones: No acute fracture. Other: n/a IMPRESSION: Pancolitis. No bowel obstruction or other acute findings identified.
--- NOTE | 2020-11-18 20:07 | EDPHYS ---
Physician Documentation [facility] Name: Edgardo Gomez Age: 29 yrs Sex: Male : 1990 Arrival Date: 11/18/2020 Time: 15:21 Bed 9 Private MD: ED Physician Zuleyma Batres HPI: 11/18 16:04 This 29 yrs old Male presents to ER via Ambulatory with complaints of jmm Abdominal Pain, Testicular Pain, Diarrhea, Fever. 16:04 The patient presents with abdominal pain. Onset: The symptoms/episode began/occurred jmm gradually, 2 day(s) ago. The symptoms do not radiate. Associated signs and symptoms: Pertinent positives: diarrhea, vomiting. The symptoms are described as achy. Modifying factors: The symptoms are alleviated by nothing, the symptoms are aggravated by nothing. The patient has not experienced similar symptoms in the past. Historical: - Allergies: 15:33 No Known Allergies; tw2 - Home Meds: 15:33 None [Active]; tw2 - PMHx: 15:33 None; tw2 - PSHx: 15:33 None; tw2 - Immunization history:: Client reports having NOT received the Covid vaccine. - Social history:: Smoking status: Patient denies any tobacco usage or history of. ROS: 16:04 Constitutional: Negative for fever, chills, and weight loss, Cardiovascular: Negative jmm for chest pain, palpitations, and edema, Respiratory: Negative for shortness of breath, cough, wheezing, and pleuritic chest pain. 16:04 Abdomen/GI: Positive for abdominal pain, nausea and vomiting, diarrhea. 16:04 All other systems are negative. Exam: 16:04 Constitutional: This is a well developed, well nourished patient who is awake, alert, jmm and in no acute distress. Head/Face: atraumatic. Eyes: EOMI, no conjunctival erythema appreciated ENT: Moist Mucus Membranes Neck: Trachea midline, Supple Chest/axilla: Normal chest wall appearance and motion. Cardiovascular: Regular rate and rhythm. No edema appreciated Respiratory: Normal respirations, no respiratory distress appreciated Abdomen/GI: Non distended, soft Back: Normal ROM Skin: General appearance color normal MS/ Extremity: Moves all extremities, no obvious deformities appreciated, no edema noted to the lower extremities Neuro: Awake and alert, normal gait Psych: Behavior is normal, Mood is normal, Patient is cooperative and pleasant Vital Signs: 15:31 BP 132 / 79; Pulse 107; Resp 18; Temp 99.8(O); Pulse Ox 99% on R/A; Weight 111.13 kg tw2 (R); Height 5 ft. 6 in. (167.64 cm); Pain 4/10; 20:25 BP 133 / 83 LA Supine (man/reg); Pulse 95; Resp 17 S; Temp 97.8; Pulse Ox 98% on R/A; sj1 Pain 0/10; 15:31 Body Mass Index 39.54 (111.13 kg, 167.64 cm) tw2 MDM: 16:04 Patient medically screened. [facility] 18:12 Data reviewed: vital signs, nurses notes. Counseling: I had a detailed discussion with [facility] the patient and/or guardian regarding: the historical points, exam findings, and any diagnostic results supporting the discharge/admit diagnosis, radiology results, the need for outpatient follow up, to return to the emergency department if symptoms worsen or persist or if there are any questions or concerns that arise at home. 11/18 16:09 Order name: Basic Metabolic Panel; Complete Time: 17:10 [facility] 11/18 16:09 Order name: CBC with Diff; Complete Time: 16:57 [facility] 11/18 16:09 Order name: Hepatic Function; Complete Time: 17:10 [facility] 11/18 16:09 Order name: Lipase; Complete Time: 17:10 [facility] 11/18 20:03 Order name: SARS-COV-2 RT PCR; Complete Time: 20:05 [facility] 11/18 16:09 Order name: IV Saline Lock [facility] 11/18 16:09 Order name: Labs collected and sent [facility] 11/18 17:10 Order name: CT Abd/Pelvis - IV Contrast Only; Complete Time: 17:52 [facility] Administered Medications: 16:40 Drug: NS 0.9% 1000 ml Route: IV; Rate: 1 bolus; Site: right antecubital; tc5 17:48 Follow up: IV Status: Completed infusion; IV converted to saline lock; IV Intake: [id number] 18:34 Follow up: IV Status: Completed infusion; IV Intake: 1000ml tc5 16:40 Drug: Zofran (Ondansetron) 4 mg Route: IVP; Site: right antecubital; tc5 17:48 Follow up: Response: No adverse reaction tc5 18:33 Follow up: Response: No adverse reaction; Nausea is decreased tc5 Disposition Summary: 11/18/20 20:07 Discharge Ordered Location: Home [facility] Condition: Stable [facility] Diagnosis - Pancolitis [facility] Followup: [facility] - With: Hema Garsia MD - When: 2 - 3 days - Reason: Recheck today's complaints, Continuance of care, Re-evaluation by your physician Discharge Instructions: - Discharge Summary Sheet [facility] - Colitis [facility] Forms: - Medication Reconciliation Form [facility] - Thank You Letter [facility] - Antibiotic Education [facility] - Prescription Opioid Use [facility] Prescriptions: - ondansetron 4 mg Oral tablet,disintegrating - take 1 tablet by ORAL route every 4-6 hours; 20 tablet; Refills: 0, Product [facility] Selection Permitted - Cipro 500 mg Oral Tablet - take 1 tablet by ORAL route every 12 hours for 10 days; 20 tablet; Refills: 0, [facility] Product Selection Permitted - Flagyl 500 mg Oral Tablet - take 1 tablet by ORAL route every 6 hours for 10 days; 40 tablet; Refills: 0, [facility] Product Selection Permitted Addendum: 11/21/2020 17:41 Co-signature as Attending Physician, Zuleyma ji a2 Signatures: Dispatcher [employer] EDMS Boby Weinberg PA PA jmm Wise, Tara, RN RN tw2 Zuleyma Batres MD MD ma2 Geri Richmond RN RN tc5 Corrections: (The following items were deleted from the chart) 11/18 19:09 16:10 CORONAVIRUS+MR.LAB.BRZ ordered. EDDC EDMS
--- NOTE | 2020-11-18 20:07 | ER ---
Nurse's Notes [facility] Name: Edgardo Gomez Age: 29 yrs Sex: Male : 1990 Arrival Date: 11/18/2020 Time: 15:21 Bed 9 Private MD: Diagnosis: Pancolitis Presentation: 11/18 15:31 Chief complaint: Patient states: Monday night i started with fever and then diarrhea. tw2 then yesterday i started having testicular pain. then today i have vomiting too. Coronavirus screen: chills, fever, nausea, vomiting. Client presents with at least one sign or symptom that may indicate coronavirus-19. Standard/surgical mask placed on the client. Provider contacted for isolation considerations. Ebola Screen: Patient denies travel to an Ebola-affected area in the 21 days before illness onset. Initial Sepsis Screen: Does the patient meet any 2 criteria? No. Patient's initial sepsis screen is negative. Does the patient have a suspected source of infection? No. Patient's initial sepsis screen is negative. Risk Assessment: Do you want to hurt yourself or someone else? Patient reports no desire to harm self or others. Onset of symptoms was November 18, 2020. 15:31 Method Of Arrival: Ambulatory tw2 15:31 Acuity: ESTELITA 3 tw2 Triage Assessment: 15:34 General: Appears in no apparent distress. uncomfortable, Behavior is calm, cooperative, tw2 appropriate for age. Pain: Complains of pain in abdomen. GI: Reports lower abdominal pain, upper abdominal pain, nausea, vomiting. Historical: - Allergies: 15:33 No Known Allergies; tw2 - Home Meds: 15:33 None [Active]; tw2 - PMHx: 15:33 None; tw2 - PSHx: 15:33 None; tw2 - Immunization history:: Client reports having NOT received the Covid vaccine. - Social history:: Smoking status: Patient denies any tobacco usage or history of. Screenin:55 Abuse screen: Denies threats or abuse. Denies injuries from another. Nutritional tc5 screening: No deficits noted. Tuberculosis screening: No symptoms or risk factors identified. Fall Risk None identified. Assessment: 15:52 General: Appears in no apparent distress. comfortable. Pain: Complains of pain in tc5 abdomen Pain Quality of pain is described as crampy, states its cramping, when it get bad its 6/10, currently 0/10. Neuro: No deficits noted. Cardiovascular: No deficits noted. Respiratory: No deficits noted. GI: Reports cramping, diarrhea, nausea, vomiting, since yesterday, too many times to count. states the pain and cramping comes and goes. : No deficits noted. 20:29 GI: Bowel sounds present X 4 quads. Abd is soft and non tender X 4 quads. sj1 Vital Signs: 15:31 BP 132 / 79; Pulse 107; Resp 18; Temp 99.8(O); Pulse Ox 99% on R/A; Weight 111.13 kg tw2 (R); Height 5 ft. 6 in. (167.64 cm); Pain 4/10; 20:25 BP 133 / 83 LA Supine (man/reg); Pulse 95; Resp 17 S; Temp 97.8; Pulse Ox 98% on R/A; sj1 Pain 0/10; 15:31 Body Mass Index 39.54 (111.13 kg, 167.64 cm) tw2 ED Course: 15:21 Patient arrived in ED. as 15:33 Triage completed. tw2 15:34 Arm band placed on. tw2 15:45 Boby Weinberg PA is PHCP. [facility] 15:45 Zuleyma Batres MD is Attending Physician. jmm 15:48 Geri Richmond, PAYAL is Primary Nurse. tc5 16:40 Inserted saline lock: 20 gauge in right antecubital area, using aseptic technique. tc5 17:43 CT Abd/Pelvis - IV Contrast Only In Process Unspecified. EDMS 20:06 Hema Garsia MD is Referral Physician. jmm 20:28 No apparent distress. sj1 20:28 No provider procedures requiring assistance completed. Patient did not have IV access sj1 during this emergency room visit. 20:29 Patient has correct armband on for positive identification. Bed in low position. Call sj1 light in reach. Side rails up X 1. 20:30 IV discontinued, intact, bleeding controlled, No redness/swelling at site. sj1 Administered Medications: 16:40 Drug: NS 0.9% 1000 ml Route: IV; Rate: 1 bolus; Site: right antecubital; tc5 17:48 Follow up: IV Status: Completed infusion; IV converted to saline lock; IV Intake: [id number] 18:34 Follow up: IV Status: Completed infusion; IV Intake: 1000ml tc5 16:40 Drug: Zofran (Ondansetron) 4 mg Route: IVP; Site: right antecubital; tc5 17:48 Follow up: Response: No adverse reaction tc5 18:33 Follow up: Response: No adverse reaction; Nausea is decreased tc5 Intake: 17:48 IV: 1000ml; Total: 1000ml. tc5 18:34 IV: 1000ml; Total: 2000ml. tc5 Outcome: 20:07 Discharge ordered by . alaina 20:28 Discharged to home ambulatory. sj1 20:28 Condition: stable 20:28 Discharge instructions given to patient, Instructed on discharge instructions, follow up and referral plans. medication usage, Demonstrated understanding of instructions, follow-up care, medications. 20:29 Patient left the ED. sj1 Signatures: Dispatcher [employer] EDMS Boby Weinberg PA PA jmm Martinez, Amelia as Wise, Tara, RN RN tw2 Kacy Pearson, RN RN sj1 Geri Richmond, RN RN tc5 Corrections: (The following items were deleted from the chart) 19:09 16:40 CORONAVIRUS+ drawn and sent. tc5 EDMS
[2020-11-18 20:46] VITALS: BP 133/83; TEMP 97.8; O2SAT 98
== END 2020-11-18 20:29 | disposition home or self-care (01) ==
LOC: ER 15:18
DX: K51.00 Ulcerative (chronic) pancolitis without complications (principal); Z20.822 Contact with and (suspected) exposure to COVID-19
CPT/HCPCS: 36415; 74177; 80048; 80076; 83690; 85025; 96361; 96374; 99283; J2405; J7030; Q9967; U0003

== ENCOUNTER 2021-05-23 12:17 | Emergency (ER) | payer SELFPAY ==
--- NOTE | 2021-05-23 12:51 | RAD REPORT ---
EXAM DESCRIPTION: RAD - Knee Left 3 View - 05/23/2021 12:41 pm CLINICAL HISTORY: PAIN COMPARISON: No comparisons FINDINGS: No acute fracture. No malalignment. No significant focal degenerative changes. IMPRESSION: No acute osseous abnormality involving the left knee.
[2021-05-23] MEDS ORDERED: IBUPROFEN 400 MG TAB ONE (13:04)
--- NOTE | 2021-05-23 13:15 | EDPHYS ---
Physician Documentation [facility] Name: Edgardo Gomez Age: 30 yrs Sex: Male : 1990 Arrival Date: 05/23/2021 Time: 12:19 Bed 13 Private MD: PIOTR Physician Benny Lind HPI: 05/23 13:10 This 30 yrs old Male presents to ER via Ambulatory with complaints of Knee kanwal Injury. 13:10 The patient presents with decreased range of motion, pain, that is acute. The kanwal complaints affect the left knee. Context: The problem was sustained at a sports field or court, resulted from twisting of the extremity, the patient can fully bear weight. Onset: The symptoms/episode began/occurred yesterday. Modifying factors: The symptoms are alleviated by elevating leg, remaining still, the symptoms are aggravated by movement, weight bearing. Associated signs and symptoms: The patient has no apparent associated signs or symptoms. Treatment prior to arrival includes: no previous treatment. Severity of symptoms: At their worst the symptoms were mild, in the emergency department the symptoms are unchanged. The patient has not experienced similar symptoms in the past. Historical: - Allergies: 12:25 No Known Allergies; ab2 - PMHx: 12:25 None; ab2 - PSHx: 12:25 None; ab2 - Immunization history:: Adult Immunizations up to date. - Social history:: Smoking status: Patient denies any tobacco usage or history of. - Family history:: not pertinent. ROS: 13:10 Constitutional: Negative for fever, chills, and weight loss, Eyes: Negative for injury, kanwal pain, redness, and discharge, ENT: Negative for injury, pain, and discharge, Neck: Negative for injury, pain, and swelling, Cardiovascular: Negative for chest pain, palpitations, and edema, Respiratory: Negative for shortness of breath, cough, wheezing, and pleuritic chest pain, Abdomen/GI: Negative for abdominal pain, nausea, vomiting, diarrhea, and constipation, Back: Negative for injury and pain, : Negative for injury, bleeding, discharge, and swelling, Skin: Negative for injury, rash, and discoloration, Neuro: Negative for headache, weakness, numbness, tingling, and seizure, Psych: Negative for depression, anxiety, suicide ideation, homicidal ideation, and hallucinations, Allergy/Immunology: Negative for hives, rash, and allergies, Endocrine: Negative for neck swelling, polydipsia, polyuria, polyphagia, and marked weight changes, Hematologic/Lymphatic: Negative for swollen nodes, abnormal bleeding, and unusual bruising. 13:10 MS/extremity: Positive for decreased range of motion, pain, of the left knee. Exam: 13:10 Constitutional: This is a well developed, well nourished patient who is awake, alert, kanwal and in no acute distress. Head/Face: Normocephalic, atraumatic. Eyes: Pupils equal round and reactive to light, extra-ocular motions intact. Lids and lashes normal. Conjunctiva and sclera are non-icteric and not injected. Cornea within normal limits. Periorbital areas with no swelling, redness, or edema. ENT: Nares patent. No nasal discharge, no septal abnormalities noted. Tympanic membranes are normal and external auditory canals are clear. Oropharynx with no redness, swelling, or masses, exudates, or evidence of obstruction, uvula midline. Mucous membranes moist. Neck: Trachea midline, no thyromegaly or masses palpated, and no cervical lymphadenopathy. Supple, full range of motion without nuchal rigidity, or vertebral point tenderness. No Meningismus. Chest/axilla: Normal chest wall appearance and motion. Nontender with no deformity. No lesions are appreciated. Cardiovascular: Regular rate and rhythm with a normal S1 and S2. No gallops, murmurs, or rubs. Normal PMI, no JVD. No pulse deficits. Respiratory: Lungs have equal breath sounds bilaterally, clear to auscultation and percussion. No rales, rhonchi or wheezes noted. No increased work of breathing, no retractions or nasal flaring. Abdomen/GI: Soft, non-tender, with normal bowel sounds. No distension or tympany. No guarding or rebound. No evidence of tenderness throughout. Back: No spinal tenderness. No costovertebral tenderness. Full range of motion. Male : Normal genitalia with no discharge or lesions. Skin: Warm, dry with normal turgor. Normal color with no rashes, no lesions, and no evidence of cellulitis. Neuro: Awake and alert, GCS 15, oriented to person, place, time, and situation. Cranial nerves II-XII grossly intact. Motor strength 5/5 in all extremities. Sensory grossly intact. Cerebellar exam normal. Normal gait. Psych: Awake, alert, with orientation to person, place and time. Behavior, mood, and affect are within normal limits. 13:10 Musculoskeletal/extremity: Extremities: grossly normal except: noted in the lateral aspect of left knee and left knee: decreased ROM, pain, ROM: full active range of motion, full passive range of motion, Circulation is intact in all extremities. Sensation intact. Compartment Syndrome exam of affected extremity: is normal. Joints: All joints are normal except the left knee displays pain at rest, Tendon exam: specific tendon testing normal through active and passive range of motion DVT Exam: no swelling, no tenderness, negative Homans' sign noted on exam, no appreciated bluish discoloration, no erythema, no increased warmth, pain. Vital Signs: 12:25 BP 128 / 84; Pulse 75; Resp 17; Temp 97.7(TE); Pulse Ox 99% ; Weight 117.93 kg; Height ab2 5 ft. 6 in. (167.64 cm); Pain 8/10; 13:21 BP 125 / 79; Pulse 81; Resp 17; Pulse Ox 99% ; bp 12:25 Body Mass Index 41.96 (117.93 kg, 167.64 cm) ab2 MDM: 12:30 Patient medically screened. [facility] 13:13 Differential diagnosis: closed fracture, contusion, tendonitis. Data reviewed: vital kanwal signs, nurses notes, radiologic studies, plain films. Data interpreted: school bus monitor: not applicable for this patient encounter. rate is 75 beats/min, Pulse oximetry: on room air is 99 %. Test interpretation: by ED physician or midlevel provider: plain radiologic studies. Counseling: I had a detailed discussion with the patient and/or guardian regarding: the historical points, exam findings, and any diagnostic results supporting the discharge/admit diagnosis, radiology results, the need for outpatient follow up, for definitive care, a family practitioner, a orthopedic surgeon. 05/23 12:31 Order name: Knee Left 3 View XRAY [facility] 05/23 12:32 Order name: Ice pack; Complete Time: 13:21 [facility] 05/23 13:20 Order name: Phuc wrap-joint; Complete Time: 13:21 bp Administered Medications: 12:55 Drug: Motrin (ibuprofen) 800 mg Route: PO; bp 13:21 Follow up: Response: Pain is decreased bp Disposition Summary: 05/23/21 13:14 Discharge Ordered Location: Home [facility] Problem: new kanwal Symptoms: have improved kanwal Condition: Stable kanwal Diagnosis - Pain in left knee kanwal Followup: kanwal - With: Private Physician - When: 2 - 3 days - Reason: Recheck today's complaints, Continuance of care, Re-evaluation by your physician Followup: kanwal - With: Bobby Perry MD - When: 2 - 3 days - Reason: Recheck today's complaints, Re-evaluation by your physician Discharge Instructions: - Discharge Summary Sheet kanwal - Joint Pain kanwal - Arthritis kanwal - How to Use a Knee Brace kanwal - Acute Knee Pain, Adult kanwal - How to Use Cold Therapy, [id number] [facility] Forms: - Medication Reconciliation Form [facility] - Thank You Letter kanwal - Antibiotic Education kanwal - Prescription Opioid Use [facility] Prescriptions: - Ibuprofen 600 mg Oral Tablet - take 1 tablet by ORAL route every 6 hours As needed take with food; 30 tablet; kanwal Refills: 0, Product Selection Permitted - Tylenol-Codeine #3 300 mg-30 mg Oral - take 2 tablet by ORAL route every 6 hours; 18 tablet; Refills: 0, Product [facility] Selection Permitted Signatures: Dispatcher [employer] Benny Martinez MD MD cha Peltier, Brian, RN RN Herbert Payne Corrections: (The following items were deleted from the chart) 13:20 12:32 Knee Immobilizer ordered. [facility] bp
--- NOTE | 2021-05-23 13:15 | ER ---
Nurse's Notes [facility] Name: Edgardo Gomez Age: 30 yrs Sex: Male : 1990 Arrival Date: 05/23/2021 Time: 12:19 Bed 13 Private MD: Diagnosis: Pain in left knee Presentation: 05/23 12:25 Chief complaint: Patient states: "I was playing basketball yesterday and I came down ab2 and heard my knee pop. Its hurt ever since.". Coronavirus screen: Vaccine status: Patient reports being unvaccinated. Client denies travel out of the [place] in the last 14 days. At this time, the client does not indicate any symptoms associated with coronavirus-19. Ebola Screen: Patient negative for fever greater than or equal to 101.5 degrees Fahrenheit, and additional compatible Ebola Virus Disease symptoms Patient denies exposure to infectious person. Patient denies travel to an Ebola-affected area in the 21 days before illness onset. No symptoms or risks identified at this time. Initial Sepsis Screen: Does the patient meet any 2 criteria? No. Patient's initial sepsis screen is negative. Does the patient have a suspected source of infection? No. Patient's initial sepsis screen is negative. Risk Assessment: Do you want to hurt yourself or someone else? Patient reports no desire to harm self or others. Onset of symptoms is unknown. 12:25 Method Of Arrival: Ambulatory ab2 12:25 Acuity: ESTELITA 4 ab2 Triage Assessment: 12:27 General: Appears in no apparent distress. uncomfortable, Behavior is calm, cooperative, ab2 appropriate for age. Pain: Complains of pain in left knee. Musculoskeletal: Reports pain in left knee. Injury Description: Pt playing basketball and jumped and when he came down he heard a pop. Historical: - Allergies: 12:25 No Known Allergies; ab2 - PMHx: 12:25 None; ab2 - PSHx: 12:25 None; ab2 - Immunization history:: Adult Immunizations up to date. - Social history:: Smoking status: Patient denies any tobacco usage or history of. - Family history:: not pertinent. Screenin:21 Abuse screen: Denies threats or abuse. Denies injuries from another. Nutritional bp screening: No deficits noted. Tuberculosis screening: No symptoms or risk factors identified. Fall Risk None identified. Assessment: 12:30 General: SEE TRIAGE. bp 13:21 Reassessment: PT D/C HOME AMBULATORY, DX WITH LEFT KNEE PAIN. bp Vital Signs: 12:25 BP 128 / 84; Pulse 75; Resp 17; Temp 97.7(TE); Pulse Ox 99% ; Weight 117.93 kg; Height ab2 5 ft. 6 in. (167.64 cm); Pain 8/10; 13:21 BP 125 / 79; Pulse 81; Resp 17; Pulse Ox 99% ; bp 12:25 Body Mass Index 41.96 (117.93 kg, 167.64 cm) ab2 ED Course: 12:19 Patient arrived in ED. ds1 12:27 Triage completed. ab2 12:27 Arm band placed on left wrist. ab2 12:29 Roman Lerma, RN is Primary Nurse. bp 12:30 Benny Lind MD is Attending Physician. kanwal 12:43 Knee Left 3 View XRAY In Process Unspecified. EDMS 13:15 Bobby Perry MD is Referral Physician. kanwal 13:21 Patient has correct armband on for positive identification. Bed in low position. Call bp light in reach. Side rails up X2. 13:21 No provider procedures requiring assistance completed. Patient did not have IV access bp during this emergency room visit. Phuc wrap to left knee. Administered Medications: 12:55 Drug: Motrin (ibuprofen) 800 mg Route: PO; bp 13:21 Follow up: Response: Pain is decreased bp Outcome: 13:14 Discharge ordered by . [facility] 13:21 Discharged to home ambulatory. bp 13:21 Condition: stable 13:21 Discharge instructions given to patient, Instructed on discharge instructions, follow up and referral plans. medication usage, Demonstrated understanding of instructions, follow-up care, medications, Prescriptions given X 2. 13:23 Patient left the ED. bp Signatures: Dispatcher [employer] EDMS Benny Lind MD MD cha Sanford, Demi ds1 Roman Lerma, RN RN bp Herbert Kruger ab2
[2021-05-23 13:35] VITALS: TEMP 97.7; O2SAT 99
[2021-05-23 13:37] VITALS: BP 125/79
== END 2021-05-23 13:23 | disposition home or self-care (01) ==
LOC: ER 12:17
DX: M25.562 Pain in left knee (principal); Y93.67 Activity, basketball
CPT/HCPCS: 99284